=== PATIENT | male | born 1940 | race Caucasian/White ===

== ENCOUNTER → 2016-12-12 | Outpatient (CLI) | payer OTHER ==
[~2016-12-12] MED LIST: AMR2 PO; ASPEC325 PO; ATEN-171 PO; ATV5 PO; CLB200 PO; CLX20 PO; DIPH-437 PO; GLCSR500 PO; LRT5 PO; NIAC500T11 PO; PRAV20TA PO
[2016-12-12 13:24] LABS: ESTIMATED AVERAGE GLUCOSE 134 mg/dl; HA1C FLAG Normal (Normal)
[2016-12-12 13:40] LABS: CALCIUM 9.4 mg/dl (8.5-10.1)
[2016-12-12 13:42] LABS: ALT/SGPT 23 U/L (12-78); AST/SGOT 12 U/L (15-37); BLOOD UREA NITROGEN 30 mg/dl (7-18); BUN/CREATININE RATIO 25.1 (10-20); CARBON DIOXIDE 31 mmol/L (21-32); CHLORIDE 103 mmol/L (98-107); CHOLESTEROL 163 mg/dl (0-200); GLUCOSE 158 mg/dl (70-99); POTASSIUM 3.8 mmol/L (3.5-5.1); SODIUM 141 mmol/L (136-145); TRIGLYCERIDES 209 mg/dl (0-150); VERY LOW DENSITY LIPOPROT CALC 42 mg/dl
[2016-12-12 13:50] LABS: ALB/GLOB RATIO 1.1 (0.9-2); ALKALINE PHOSPHATASE 80 U/L (45-117); HDL CHOLESTEROL 41 mg/dl; LDL CHOLESTEROL CALCULATED 80 mg/dl
== END | disposition home or self-care (01) ==
LOC: C.LABMFLN 12:13
PROVIDERS: ATTEND Family Medicine
DX: E78.5 Hyperlipidemia, unspecified (principal); E11.40 Type 2 diabetes mellitus with diabetic neuropathy, unspecified

== ENCOUNTER → 2017-12-06 | Outpatient (CLI) | payer OTHER ==
[2017-12-06 13:35] LABS: ALBUMIN 3.3 gm/dl (3.4-5.0); ALT/SGPT 17 U/L (12-78); AST/SGOT 14 U/L (15-37); BLOOD UREA NITROGEN 25 mg/dl (7-18); CALCIUM 8.6 mg/dl (8.5-10.1); CARBON DIOXIDE 31 mmol/L (21-32); CHOLESTEROL 118 mg/dl (0-200); CREATININE 1.25 mg/dl (0.60-1.40); GLUCOSE 137 mg/dl (70-99); POTASSIUM 3.8 mmol/L (3.5-5.1); SODIUM 139 mmol/L (136-145)
[2017-12-06 13:40] LABS: ALKALINE PHOSPHATASE 83 U/L (45-117); LDL CHOLESTEROL CALCULATED 61 mg/dl; TOTAL PROTEIN 6.5 gm/dl (6.4-8.2)
[2017-12-06 13:50] LABS: HEMOGLOBIN A1C 6.1 % (4.5-5.6)
== END | disposition home or self-care (01) ==
LOC: C.LABMFLN 07:55
PROVIDERS: ATTEND Family Medicine
DX: C61 Malignant neoplasm of prostate (principal); I10 Essential (primary) hypertension; E78.5 Hyperlipidemia, unspecified; E11.40 Type 2 diabetes mellitus with diabetic neuropathy, unspecified

== ENCOUNTER 2021-05-29 16:48 | Inpatient (IN) ==
--- NOTE | 2021-05-29 17:28 | XRay Report ---
XR chest 1V portable HISTORY: weakness COMPARISON: Chest 01/18/2021. FINDINGS: The lungs are clear. Cardiac silhouette is normal in size. No pleural effusions. No pneumot horax. IMPRESSION: No acute process. ACT 112: Negative or not required by law. Electronically signed by: Emeka Dill M.D. 05/29/2021 5:27 PM
[2021-05-29 18:59] LABS: Basophils # (auto) 0.01 K/uL (0-0.2); Basophils % (auto) 0.1 %; Eosinophils # (auto) 0.01 K/uL (0-0.5); Eosinophils % (auto) 0.1 %; Hematocrit (blood only) 41.4 % (42-52); Hemoglobin 13.6 g/dL (14.0-18.0); Immature Granulocytes # (auto) 0.01 K/uL (0.00-0.02); Immature Granulocytes % (auto) 0.1 %; Lymphocytes # (auto) 0.68 K/uL (1.2-3.4); Lymphocytes % (auto) 8.8 %; Mean Corpuscular Hemoglobin 30.2 pg (25-34); Mean Corpuscular Hgb Conc 32.9 g/dL (32-36); Mean Platelet Volume 9.5 fL (7.4-10.4); Monocytes # (auto) 0.26 K/uL (0.11-0.59); Monocytes % (auto) 3.4 %; Neutrophils # (auto) 6.75 K/uL (1.4-6.5); Neutrophils % (auto) 87.5 %; Platelet Count 216 K/uL (130-400); RDW Coefficient of Variation 14.8 % (11.5-14.5); White Blood Count 7.72 K/uL (4.8-10.8)
[2021-05-29 19:25] LABS: Alanine Aminotransferase 39 U/L (12-78); Albumin Level 3.4 gm/dl (3.4-5.0); Alkaline Phosphatase 198 U/L (45-117); Aspartate Aminotransferase 12 U/L (15-37); BUN Creatinine Ratio 27.3 (10-20); Bilirubin,Total 1.3 mg/dl (0.2-1); Blood Urea Nitrogen 34 mg/dl (7-18); Calcium 8.9 mg/dl (8.5-10.1); Carbon Dioxide 28 mmol/L (21-32); Chloride 101 mmol/L (98-107); Est GFR (African American) 62.4 ml/min; Est GFR (Non-African American) 53.8 ml/min; Globulin 3.3 gm/dl (2.5-4.0); Glucose 500 mg/dl (70-99); Potassium 4.4 mmol/L (3.5-5.1); Sodium 135 mmol/L (136-145); Total Protein 6.7 gm/dl (6.4-8.2); Troponin I < 0.015 ng/ml (0-0.045)
--- NOTE | 2021-05-29 19:32 | CT Scan Report ---
HEAD CT NONCONTRAST CT DOSE: 1498.81 mGy.cm HISTORY: change in mental status TECHNIQUE: Multiaxial CT images of the head were performed without the use of intravenous contrast. A utomated exposure control was utilized for this study. A dose lowering technique was utilized adheri ng to the principles of ALARA. Comparison: Brain MRI 03/22/2021. Findings: Calcified atrophic right globe again noted. The paranasal sinuses and mastoid air cells are clear. The calvarium and skull base are intact. Old left MCA territory infarct is again noted. There is no hematoma or midline shift. No acute infarct identified. Old lacunar infarct within the left ce rebellar hemisphere. There is again noted a 2.5 cm left cerebellar mass. This is better appreciated o n these prior brain MRI. Impression: 1. No acute infarct or intracranial hemorrhage identified. 2. Old left MCA territory infarct, unchanged. 3. There is again noted a 2.5 cm left cerebellar mass. This is better appreciated on the prior brain MRI. ACT 112: Negative or not required by law. Electronically signed by: Emeka Dill M.D. 05/29/2021 7:30 PM
[2021-05-29 19:36] LABS: Beta-Hydroxybutyrate 4.27 mg/dl (0.2-2.81)
[2021-05-29] MEDS ORDERED: SODIUM CHLORIDE 0.9% 500 ML IV ONE (19:39)
[2021-05-29] MEDS ORDERED: NovoLIN-R INSULIN PER UNIT CHARGE IV STA (19:39)
--- NOTE | 2021-05-29 19:39 | Emergency Department Note ---
Impression & Plan Acute hyperglycemia, Cerebellar mass, Glioblastoma multiforme of cerebellum, Weakness ED Provider Note NAME: CAMDEN PARKINSON AGE: 81 SEX: M : 1940 ARRIVES VIA: Walk-In INFORMANT: Patient ED PROVIDER(S): Garret Macdonald DO CHIEF COMPLAINT: weakness and confusion HPI: Patient is a 81-year-old male who presents to the ER for confusion, weakness, and hyperglycemia. He has a history of a GBM and follows with [facility]. Over the past week they placed him on steroids, Decadron 4 in the morning and 2 in the evening. He has become much more confused intermittently agitated and weaker. He can no longer walk and get around. Denies any chest pain or shortness of breath. No belly pain, nausea, vomiting, or diarrhea. No dysuria, urgency, or frequency. No other exacerbating or remitting factors. Sugars have been running high the whole time. ROS: See above HPI for pertinent positives & negatives. A total of 10 systems reviewed and were otherwise negative. PAST MEDICAL HISTORY:See Below PAST SURGICAL HISTORY:See Below FAMILY HISTORY:See Below SOCIAL HISTORY:See Below HOME MEDICATIONS:See Below ALLERGIES:See Below VITALS:See Below PHYSICAL EXAMINATION: GENERAL: Sitting up in bed, alert, well appearing, well nourished, no distress, non-toxic EYE EXAM: normal conjunctiva. PERRL and EOM's grossly intact. OROPHARYNX: no exudate, no erythema, lips, buccal mucosa, and tongue normal and mucous membranes are moist NECK: supple, no nuchal rigidity, no adenopathy, non-tender LUNGS: Clear to auscultation. Normal chest wall mechanics HEART: no murmurs, S1 normal and S2 normal ABDOMEN: abdomen soft, non-tender, normo-active bowel sounds, no masses, no rebound or guarding. BACK: Back is symmetrical on inspection and there is no deformity, no midline tenderness, no CVA tenderness. SKIN: Small abrasion on the buttocks UPPER EXTREMITIES: upper extremities are grossly normal. LOWER EXTREMITIES: No pitting edema. NEURO EXAM: Oriented to person but not place or family, cranial nerves II-XII intact, normal speech, no weakness of arms, no weakness of legs. No drift. Finger to nose intact. Gross sensation intact. MEDICAL DECISION MAKING: Patient is an 81-year-old male who presents the ER for past medical history of GBM receiving chemo and radiation who has been having confusion and weakness over the past week. Recently started on Decadron over the past week. 4 mg in the morning and 2 mg at night. IV was established blood work was obtained. Labs show no significant leukocytosis and mild anemia. INR was unremarkable. BMP with a BSG 500. LFTs were unremarkable. T bili slightly up at 1.3. Beta hydroxybutyric at 4. UA was clean. Covid was negative. Patient was given IV fluids and insulin. Blood sugar trended down to 350. With the confusion elevated sugars which need stricter control discussed with the hospitalist for further evaluation. CT head did show no significant change in the 2.5 cm mass. Triage Nursing notes reviewed. Limited review of prior medical records performed Vital Signs: reviewed and remarkable for no significant abnormalities Differential diagnosis: Infection, dehydration, metabolic abnormality, hypo/hyperglycemia, electrolyte disturbance, anemia, hypoxia, cardiac sources, intracerebral event, toxicologic, neurologic, as well as other pathologies. ER treatment provided: See below Diagnostics interpreted by me: ECG: Sinus rhythm rate of 63 Left axis T wave inversion in the inferior leads as well as the lateral leads Right bundle branch block Septal Q waves New from old EKG T wave inversions Cardiac Monitoring: An order was placed for continuous cardiac monitoring. The monitor shows a rate of 90 with sinus rhythm. Laboratory studies: As stated above and show below. 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 Decreased appetite Depression Dilated aortic root Dyslipidemia Elevated troponin Falls Fatigue Generalized muscle weakness GERD (gastroesophageal reflux disease) Glaucoma Glioblastoma multiforme of cerebellum Head trauma Hearing loss of both ears due to cerumen impaction 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) Hypertension Hypokalemia Idiopathic polyneuropathy Neurologic gait dysfunction Never smoker Organic impotence Peripheral neuropathy Pulmonary nodule 1 cm or greater in diameter Retinal detachment Rhabdomyolysis Situational anxiety Type 2 diabetes mellitus Surgical History H/O wrist surgery Both wrists History of appendectomy History of cataract surgery Left eye History of colonoscopy History of hip replacement Left hip replacement History of inguinal hernia repair Bilateral History of prostate surgery History of tonsillectomy and adenoidectomy S/P cholecystectomy Family History Father Prostate cancer Mother Diabetes Heart disease H/O heart surgery Cancer Hypertension Brother No problems noted. Brother No problems noted. Sister No problems noted. Daughter No problems noted. 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 Feels Safe at Home: Yes Childhood Exposure to Second-Hand Smoke: No caffeine: No during the past year weight has: remained stable Seatbelt Use: always Sunscreen Use: No Assistive Devices: Glasses and Walker Allergies Allergies Allergy/AdvReac Type Severity Reaction Status Date / Time No Known Allergies Allergy Unknown Verified 05/29/21 19:45 Home Meds Home Medications Medication Instructions Recorded Confirmed niacin 500 mg tablet 500 mg PO DAILY tab 07/02/19 05/29/21 aspirin 81 mg tablet,delayed 81 mg PO DAILY 03/22/21 05/29/21 release buspirone 15 mg tablet 15 mg PO BID 03/22/21 05/29/21 melatonin 10 mg capsule 10 mg PO HS 03/22/21 05/29/21 acetaminophen 650 mg 650 mg PO Q8H PRN 04/16/21 05/29/21 tablet,extended release (Tylenol 8 Hour) folic acid 1 mg tablet 1 mg PO DAILY 04/16/21 05/29/21 dexamethasone 4 mg tablet 4 mg PO DAILY 05/17/21 05/29/21 atorvastatin 20 mg tablet 20 mg PO DAILY 05/29/21 05/29/21 Previous Rx's Medication Instructions Recorded escitalopram oxalate 20 mg tablet 20 mg PO DAILY #90 tab 07/13/20 metformin 500 mg tablet 500 mg PO BID #60 tab 04/15/21 lisinopril 20 mg tablet 20 mg PO DAILY #90 tab 04/29/21 lorazepam 0.5 mg tablet 0.5 mg PO BID PRN #60 tab 04/29/21 atenolol 50 mg tablet 50 mg PO QAM #30 tab 05/17/21 Results & Data (ED) Vital Signs Vital Signs - 24 hr 05/29/21 17:01 05/29/21 19:30 05/29/21 19:40 Temperature 36.6 C Temperature Source Oral Pulse Rate 66 Pulse Rate [Left] 72 Pulse Rhythm [Left] Regular Pulse Strength [Left] Normal Respiratory Rate 18 19 Respiratory Effort / Characteristics Non-Labored Respiratory Depth Normal Respiratory Pattern Regular Blood Pressure 118/62 Blood Pressure [Right Arm] 172/71 H Blood Pressure Mean 80 Blood Pressure Mean [Right Arm] 104 Blood Pressure Position [Right Arm] Sitting Pulse Oximetry 96 98 98 Oxygen Delivery Method Room Air Room Air Sepsis Recent Fever Within 48 Hours No Sepsis New/Unexplained Change in Mental Status Yes Sepsis Action Taken by Nursing No Action Required 05/29/21 20:37 05/29/21 21:00 05/29/21 22:16 Temperature Temperature Source Pulse Rate 63 63 Pulse Rate [Left] 65 Pulse Rhythm [Left] Regular Pulse Strength [Left] Normal Respiratory Rate 24 14 19 Respiratory Effort / Characteristics Non-Labored Respiratory Depth Normal Respiratory Pattern Regular Blood Pressure 164/92 H 158/79 H Blood Pressure [Right Arm] 146/65 H Blood Pressure Mean 116 105 Blood Pressure Mean [Right Arm] 92 Blood Pressure Position [Right Arm] Lying Pulse Oximetry 98 98 99 Oxygen Delivery Method Room Air Room Air Room Air Sepsis Recent Fever Within 48 Hours Sepsis New/Unexplained Change in Mental Status Sepsis Action Taken by Nursing Laboratory Data Result diagrams: 05/29/21 18:46 05/29/21 18:46 Lab Results 05/29/21 05/29/21 05/29/21 Range/Units 18:46 18:46 19:30 WBC 7.72 (4.8-10.8) K/uL RBC 4.50 L (4.7-6.1) M/uL Hgb 13.6 L (14.0-18.0) g/dL Hct 41.4 L (42-52) % MCV 92.0 (80-100) fL MCH 30.2 (25-34) pg MCHC 32.9 (32-36) g/dL RDW Std Deviation 50.0 H (36.4-46.3) fL RDW Coeff of [place]ien 14.8 H (11.5-14.5) % Plt Count 216 (130-400) K/uL MPV 9.5 (7.4-10.4) fL Immature Gran % (Auto) 0.1 % Neut % (Auto) 87.5 % Lymph % (Auto) 8.8 % [place] % (Auto) 3.4 % Eos % (Auto) 0.1 % Baso % (Auto) 0.1 % Neut # (Auto) 6.75 H (1.4-6.5) K/uL Lymph # (Auto) 0.68 L (1.2-3.4) K/uL [place] # (Auto) 0.26 (0.11-0.59) K/uL Eos # (Auto) 0.01 (0-0.5) K/uL Baso # (Auto) 0.01 (0-0.2) K/uL Immature Gran # (Auto) 0.01 (0.00-0.02) K/uL PT (9.0-12.0) Seconds INR (0.9-1.1) APTT (21.0-31.0) Seconds PTT Ratio Sodium 135 L (136-145) mmol/L Potassium 4.4 (3.5-5.1) mmol/L Chloride 101 (98-107) mmol/L Carbon Dioxide 28 (21-32) mmol/L Anion Gap 6.0 (3-11) BUN 34 H (7-18) mg/dl Creatinine 1.24 (0.6-1.4) mg/dl Est Cr Clr Drug Dosing Not Reportable Est GFR ( Amer) 62.4 ml/min Est GFR (Non-Af Amer) 53.8 ml/min BUN/Creatinine Ratio 27.3 H (10-20) Glucose 500 H* (70-99) mg/dl POC Glucose 465 H* (70-99) mg/dl Calcium 8.9 (8.5-10.1) mg/dl Total Bilirubin 1.3 H (0.2-1) mg/dl AST 12 L (15-37) U/L ALT 39 (12-78) U/L Alkaline Phosphatase 198 H (45-117) U/L Troponin I < 0.015 (0-0.045) ng/ml Total Protein 6.7 (6.4-8.2) gm/dl Albumin 3.4 (3.4-5.0) gm/dl Globulin 3.3 (2.5-4.0) gm/dl Albumin/Globulin Ratio 1.0 (0.9-2) Beta-Hydroxybutyric Acd 4.27 H (0.2-2.81) mg/dl Urine Color Urine Appearance (Clear) Urine pH (4.5-7.5) Ur Specific [place] (1.000-1.030) Urine Protein (Negative) Urine Glucose (UA) (Negative) Urine Ketones (Negative) Urine Blood (Negative) Urine Nitrite (Negative) Urine Bilirubin (Negative) Urine Urobilinogen (Negative) Ur Leukocyte Esterase (Negative) COVID-19 Eval Order SARS-CoV-2 (PCR) (Negative) 05/29/21 05/29/21 05/29/21 Range/Units 19:37 19:57 19:57 WBC (4.8-10.8) K/uL RBC (4.7-6.1) M/uL Hgb (14.0-18.0) g/dL Hct (42-52) % MCV (80-100) fL MCH (25-34) pg MCHC (32-36) g/dL RDW Std Deviation (36.4-46.3) fL RDW Coeff of Tien (11.5-14.5) % Plt Count (130-400) K/uL MPV (7.4-10.4) fL Immature Gran % (Auto) % Neut % (Auto) % Lymph % (Auto) % [place] % (Auto) % Eos % (Auto) % Baso % (Auto) % Neut # (Auto) (1.4-6.5) K/uL Lymph # (Auto) (1.2-3.4) K/uL [place] # (Auto) (0.11-0.59) K/uL Eos # (Auto) (0-0.5) K/uL Baso # (Auto) (0-0.2) K/uL Immature Gran # (Auto) (0.00-0.02) K/uL PT 9.9 (9.0-12.0) Seconds INR 1.0 (0.9-1.1) APTT 22.6 (21.0-31.0) Seconds PTT Ratio 0.9 Sodium (136-145) mmol/L Potassium (3.5-5.1) mmol/L Chloride (98-107) mmol/L Carbon Dioxide (21-32) mmol/L Anion Gap (3-11) BUN (7-18) mg/dl Creatinine (0.6-1.4) mg/dl Est Cr Clr Drug Dosing Est GFR ( Amer) ml/min Est GFR (Non-Af Amer) ml/min BUN/Creatinine Ratio (10-20) Glucose (70-99) mg/dl POC Glucose (70-99) mg/dl Calcium (8.5-10.1) mg/dl Total Bilirubin (0.2-1) mg/dl AST (15-37) U/L ALT (12-78) U/L Alkaline Phosphatase (45-117) U/L Troponin I (0-0.045) ng/ml Total Protein (6.4-8.2) gm/dl Albumin (3.4-5.0) gm/dl Globulin (2.5-4.0) gm/dl Albumin/Globulin Ratio (0.9-2) Beta-Hydroxybutyric Acd (0.2-2.81) mg/dl Urine Color Urine Appearance (Clear) Urine pH (4.5-7.5) Ur Specific [place] (1.000-1.030) Urine Protein (Negative) Urine Glucose (UA) (Negative) Urine Ketones (Negative) Urine Blood (Negative) Urine Nitrite (Negative) Urine Bilirubin (Negative) Urine Urobilinogen (Negative) Ur Leukocyte Esterase (Negative) COVID-19 Eval Order Covid19 at [facility] SARS-CoV-2 (PCR) NEGATIVE (Negative) 05/29/21 05/29/21 Range/Units 19:58 21:07 WBC (4.8-10.8) K/uL RBC (4.7-6.1) M/uL Hgb (14.0-18.0) g/dL Hct (42-52) % MCV (80-100) fL MCH (25-34) pg MCHC (32-36) g/dL RDW Std Deviation (36.4-46.3) fL RDW Coeff of Tien (11.5-14.5) % Plt Count (130-400) K/uL MPV (7.4-10.4) fL Immature Gran % (Auto) % Neut % (Auto) % Lymph % (Auto) % [place] % (Auto) % Eos % (Auto) % Baso % (Auto) % Neut # (Auto) (1.4-6.5) K/uL Lymph # (Auto) (1.2-3.4) K/uL [place] # (Auto) (0.11-0.59) K/uL Eos # (Auto) (0-0.5) K/uL Baso # (Auto) (0-0.2) K/uL Immature Gran # (Auto) (0.00-0.02) K/uL PT (9.0-12.0) Seconds INR (0.9-1.1) APTT (21.0-31.0) Seconds PTT Ratio Sodium (136-145) mmol/L Potassium (3.5-5.1) mmol/L Chloride (98-107) mmol/L Carbon Dioxide (21-32) mmol/L Anion Gap (3-11) BUN (7-18) mg/dl Creatinine (0.6-1.4) mg/dl Est Cr Clr Drug Dosing Est GFR ( Amer) ml/min Est GFR (Non-Af Amer) ml/min BUN/Creatinine Ratio (10-20) Glucose (70-99) mg/dl POC Glucose 335 H* (70-99) mg/dl Calcium (8.5-10.1) mg/dl Total Bilirubin (0.2-1) mg/dl AST (15-37) U/L ALT (12-78) U/L Alkaline Phosphatase (45-117) U/L Troponin I (0-0.045) ng/ml Total Protein (6.4-8.2) gm/dl Albumin (3.4-5.0) gm/dl Globulin (2.5-4.0) gm/dl Albumin/Globulin Ratio (0.9-2) Beta-Hydroxybutyric Acd (0.2-2.81) mg/dl Urine Color Yellow Urine Appearance Clear (Clear) Urine pH 5.0 (4.5-7.5) Ur Specific [place] 1.030 (1.000-1.030) Urine Protein Negative (Negative) Urine Glucose (UA) 3+ H (Negative) Urine Ketones Trace H (Negative) Urine Blood Negative (Negative) Urine Nitrite Negative (Negative) Urine Bilirubin Negative (Negative) Urine Urobilinogen Negative (Negative) Ur Leukocyte Esterase Negative (Negative) COVID-19 Eval Order SARS-CoV-2 (PCR) (Negative) Administered Medications Discontinued Medications Sodium Chloride (Nss) 500 mls @ 999 mls/hr IV .Q31M ONE Stop: 05/29/21 20:09 Last Infusion: 05/29/21 20:28 Dose: 0 mls/hr Documented by: [id number] Admin: 05/29/21 19:55 Dose: 999 mls/hr Documented by: [id number] Insulin Human Regular (Novolin-R Insulin Per Unit Charge) 8 units IV NOW STA Stop: 05/29/21 19:40 Last Admin: 05/29/21 19:54 Dose: 8 units Documented by: [id number] Cosigned by: [id number] Lorazepam (Lorazepam 1 Mg Tab) 1 mg SL NOW STA Stop: 05/29/21 23:30 Last Admin: 05/29/21 23:44 Dose: 1 mg Documented by: [id number] Imaging Data Radiologist's Impression: Chest X-Ray 05/29/21 17:05 XR chest 1V portable HISTORY: weakness COMPARISON: Chest 01/18/2021. FINDINGS: The lungs are clear. Cardiac silhouette is normal in size. No pleural effusions. No pneumothorax. IMPRESSION: No acute process. ACT 112: Negative or not required by law. Electronically signed by: Emeka Dill M.D. 05/29/2021 5:[address] 05/29/21 17:[address] DOSE: 1498.81 mGy.cm HISTORY: change in mental status TECHNIQUE: Multiaxial CT images of the head were performed without the use of intravenous contrast. Automated exposure control was utilized for this study. A dose lowering technique was utilized adhering to the principles of ALARA. Comparison: Brain MRI 03/22/2021. Findings: Calcified atrophic right globe again noted. The paranasal sinuses and mastoid air cells are clear. The calvarium and skull base are intact. Old left MCA territory infarct is again noted. There is no hematoma or midline shift. No acute infarct identified. Old lacunar infarct within the left cerebellar hemisphere. There is again noted a 2.5 cm left cerebellar mass. This is better appreciated on these prior brain MRI. Impression: 1. No acute infarct or intracranial hemorrhage identified. 2. Old left MCA territory infarct, unchanged. 3. There is again noted a 2.5 cm left cerebellar mass. This is better appreciated on the prior brain MRI. ACT 112: Negative or not required by law. Electronically signed by: Emeka Dill M.D. 05/29/2021 7:30 PM Discharge Plan Visit Data Chief Complaint: Weakness Stated Complaint: OPEN SORE ON BOTTOM/WEAKNESS,EXCESSIVE THIRST ED Provider: Garret Macdonald Discharge Problem: Acute hyperglycemia, Cerebellar mass, Glioblastoma multiforme of cerebellum, Weakness
[2021-05-29 20:02] LABS: Partial Thromboplastin Ratio 0.9; Partial Thromboplastin Time 22.6 Seconds (21.0-31.0); Prothrombin Time 9.9 Seconds (9.0-12.0)
[2021-05-29 20:06] LABS: Appearance Urine Clear (Clear); Bilirubin Urine Negative (Negative); Blood Urine Negative (Negative); Color Urine Yellow; Glucose Urine UA 3+ (Negative); Ketones Urine Trace (Negative); Leukocyte Esterase Urine Negative (Negative); Nitrite Urine Negative (Negative); Protein Urine Negative (Negative); Urobilinogen Urine Negative (Negative)
[2021-05-29] MEDS ORDERED: LORazepam 1 MG TAB SL STA (23:29)
--- NOTE | 2021-05-29 23:29 | History & Physical Report ---
Date of Service May 29, 2021 Assessment & Plan (1) Acute hyperglycemia: Plan: Glucose initially 500 on ED labs. 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 Continue otherwise as above (3) Glioblastoma multiforme of cerebellum: Plan: GBM/cerebellar mass- Was started on Decadron 4 mg p.o. in a.m. and 2 mg p.o. in p.m. by [facility] Presumptively this was for vasogenic edema CT of head showed no acute findings Order MRI brain with and without contrast to further assess Would continue Decadron at this time, and will treat the hyperglycemia, as the patient's symptoms are most likely related to hyperglycemia. (4) Cerebellar mass: Plan: See above (5) Weakness: Plan: See above (6) Benign essential hypertension: Plan: Continue atenolol, aspirin and lisinopril with hold parameters (7) Situational anxiety: Plan: Continue buspirone, Escitalopram, lorazepam as needed, and melatonin at bedtime History of Present Illness Chief Complaint: The patient presents to the emergency department with his , due to confusion, weakness and elevated blood sugar after having been started on Decadron for GBM at [facility]. Primary Care Provider: Gary Fraga MD The patient is an 81-year-old male with a past medical history including GBM, diabetes mellitus, diabetic autonomic neuropathy, hypertension, situational anxiety, cerebellar mass, insomnia, and hyperlipidemia. Patient presents with symptoms as noted above. He had been prescribed Decadron 4 mg in the a.m. and 2 mg in the p.m., but his had been withholding the evening dose due to elevated blood sugars at home. Allergies Allergy/AdvReac Type Severity Reaction Status Date / Time No Known Allergies Allergy Unknown Verified 05/29/21 19:45 Home Medications Medication Instructions Recorded Confirmed Type niacin 500 mg tablet 500 mg PO DAILY tab 07/02/19 05/29/21 History escitalopram oxalate 20 mg tablet 20 mg PO DAILY #90 tab 07/13/20 05/29/21 Rx aspirin 81 mg tablet,delayed 81 mg PO DAILY 03/22/21 05/29/21 History release buspirone 15 mg tablet 15 mg PO BID 03/22/21 05/29/21 History melatonin 10 mg capsule 10 mg PO HS 03/22/21 05/29/21 History metformin 500 mg tablet 500 mg PO BID #60 tab 04/15/21 05/29/21 Rx acetaminophen 650 mg 650 mg PO Q8H PRN 04/16/21 05/29/21 History tablet,extended release (Tylenol 8 Hour) folic acid 1 mg tablet 1 mg PO DAILY 04/16/21 05/29/21 History lisinopril 20 mg tablet 20 mg PO DAILY #90 tab 04/29/21 05/29/21 Rx lorazepam 0.5 mg tablet 0.5 mg PO BID PRN #60 tab 04/29/21 05/29/21 Rx atenolol 50 mg tablet 50 mg PO QAM #30 tab 05/17/21 05/29/21 Rx dexamethasone 4 mg tablet 4 mg PO DAILY 05/17/21 05/29/21 History atorvastatin 20 mg tablet 20 mg PO DAILY 05/29/21 05/29/21 History Past Med/Surg History Medical History (Updated 05/30/21 @ 00:49 by Garret Macdonald DO) Abnormality of gait and mobility Adenocarcinoma of prostate NIDIA (acute kidney injury) Ambulatory dysfunction Anemia Anxiety Aortic valve stenosis Benign essential hypertension Carotid bruit Cerebellar mass Colon adenoma 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 Decreased appetite Depression Dilated aortic root Dyslipidemia Elevated troponin Falls Fatigue Generalized muscle weakness GERD (gastroesophageal reflux disease) Glaucoma Glioblastoma multiforme of cerebellum Head trauma Hearing loss of both ears due to cerumen impaction 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) Hypertension Hypokalemia Idiopathic polyneuropathy Neurologic gait dysfunction Never smoker Organic impotence Peripheral neuropathy Pulmonary nodule 1 cm or greater in diameter Retinal detachment Rhabdomyolysis Situational anxiety Type 2 diabetes mellitus Surgical History H/O wrist surgery Both wrists History of appendectomy History of cataract surgery Left eye History of colonoscopy History of hip replacement Left hip replacement History of inguinal hernia repair Bilateral History of prostate surgery History of tonsillectomy and adenoidectomy S/P cholecystectomy Family History Father Prostate cancer Mother Diabetes Heart disease H/O heart surgery Cancer Hypertension Brother No problems noted. Brother No problems noted. Sister No problems noted. Daughter No problems noted. Daughter Diabetes Social History Smoking Status: Never smoker Second Hand Exposure: No; Hx Alcohol Use: No Hx Substance Use: No Preferred Language: Lao Communication Ability: Effective Hearing Ability: Hard of Hearing Career Development Coordinator Required: No Beliefs That Will Affect Care: None marital status: / Current Living Situation: Alone Current Living Situation Comment: Pt's daughter and her kids take turns caring for pt current occupational status: retired current occupation: [employer] Other Information That Helps Us Care for You: No Feels Safe at Home: Yes Safety Concerns: Feels Safe At This Time Childhood Exposure to Second-Hand Smoke: No caffeine: No during the past year weight has: remained stable Seatbelt Use: always Sunscreen Use: No Assistive Devices: Glasses and Wheelchair Review of Systems Review of Systems: The patient denies chest pain, palpitations, cough, lower extremity swelling, sore throat, fevers, chills, sweats, nausea, vomiting, diarrhea , constipation, abdominal pain, pelvic pain, blood in urine or stool, dysuria, urinary frequency or urgency, loss of consciousness, rash, abnormal bruising or bleeding, focal weakness, numbness or tingling in arms or legs, generalized arthralgias or myalgias, back or neck pain, or night sweats. The review of systems is otherwise negative other than for that already noted above, and at least 10 systems have been reviewed. Results & Data Results & Data ([facility]) Vital Signs (Past 12 Hours) Vital Signs Temp Pulse Pulse Resp BP BP Pulse Ox 05/29/21 22:16 65 19 146/65 H 99 05/29/21 21:00 63 14 158/79 H 98 05/29/21 20:37 63 24 164/92 H 98 05/29/21 19:40 98 05/29/21 19:30 72 19 172/71 H 98 05/29/21 17:01 97.9 F 66 18 118/62 96 Laboratory Results Laboratory Results WBC 7.72 K/uL (4.8-10.8) 05/29/21 18:46 RBC 4.50 M/uL (4.7-6.1) L 05/29/21 18:46 Hgb 13.6 g/dL (14.0-18.0) L 05/29/21 18:46 Hct 41.4 % (42-52) L 05/29/21 18:46 MCV 92.0 fL (80-100) 05/29/21 18:46 MCH 30.2 pg (25-34) 05/29/21 18:46 MCHC 32.9 g/dL (32-36) 05/29/21 18:46 RDW Std Deviation 50.0 fL (36.4-46.3) H 05/29/21 18:46 RDW Coeff of Tien 14.8 % (11.5-14.5) H 05/29/21 18:46 Plt Count 216 K/uL (130-400) 05/29/21 18:46 MPV 9.5 fL (7.4-10.4) 05/29/21 18:46 Immature Gran % (Auto) 0.1 % 05/29/21 18:46 Neut % (Auto) 87.5 % 05/29/21 18:46 Lymph % (Auto) 8.8 % 05/29/21 18:46 [place] % (Auto) 3.4 % 05/29/21 18:46 Eos % (Auto) 0.1 % 05/29/21 18:46 Baso % (Auto) 0.1 % 05/29/21 18:46 Neut # (Auto) 6.75 K/uL (1.4-6.5) H 05/29/21 18:46 Lymph # (Auto) 0.68 K/uL (1.2-3.4) L 05/29/21 18:46 Waldo # (Auto) 0.26 K/uL (0.11-0.59) 05/29/21 18:46 Eos # (Auto) 0.01 K/uL (0-0.5) 05/29/21 18:46 Baso # (Auto) 0.01 K/uL (0-0.2) 05/29/21 18:46 Immature Gran # (Auto) 0.01 K/uL (0.00-0.02) 05/29/21 18:46 PT 9.9 Seconds (9.0-12.0) 05/29/21 19:37 INR 1.0 (0.9-1.1) 05/29/21 19:37 APTT 22.6 Seconds (21.0-31.0) 05/29/21 19:37 PTT Ratio 0.9 05/29/21 19:37 Sodium 135 mmol/L (136-145) L 05/29/21 18:46 Potassium 4.4 mmol/L (3.5-5.1) 05/29/21 18:46 Chloride 101 mmol/L (98-107) 05/29/21 18:46 Carbon Dioxide 28 mmol/L (21-32) 05/29/21 18:46 Anion Gap 6.0 (3-11) 05/29/21 18:46 BUN 34 mg/dl (7-18) H 05/29/21 18:46 Creatinine 1.24 mg/dl (0.6-1.4) 05/29/21 18:46 Est Cr Clr Drug Dosing Not Reportable 05/29/21 18:46 Est GFR ( Amer) 62.4 ml/min 05/29/21 18:46 Est GFR (Non-Af Amer) 53.8 ml/min 05/29/21 18:46 BUN/Creatinine Ratio 27.3 (10-20) H 05/29/21 18:46 Glucose 500 mg/dl (70-99) H* 05/29/21 18:46 POC Glucose 335 mg/dl (70-99) H* 05/29/21 21:07 Calcium 8.9 mg/dl (8.5-10.1) 05/29/21 18:46 Total Bilirubin 1.3 mg/dl (0.2-1) H 05/29/21 18:46 AST 12 U/L (15-37) L 05/29/21 18:46 ALT 39 U/L (12-78) 05/29/21 18:46 Alkaline Phosphatase 198 U/L (45-117) H 05/29/21 18:46 Troponin I < 0.015 ng/ml (0-0.045) 05/29/21 18:46 Total Protein 6.7 gm/dl (6.4-8.2) 05/29/21 18:46 Albumin 3.4 gm/dl (3.4-5.0) 05/29/21 18:46 Globulin 3.3 gm/dl (2.5-4.0) 05/29/21 18:46 Albumin/Globulin Ratio 1.0 (0.9-2) 05/29/21 18:46 Beta-Hydroxybutyric Acd 4.27 mg/dl (0.2-2.81) H 05/29/21 18:46 Urine Color Yellow 05/29/21 19:58 Urine Appearance Clear (Clear) 05/29/21 19:58 Urine pH 5.0 (4.5-7.5) 05/29/21 19:58 Ur Specific [place] 1.030 (1.000-1.030) 05/29/21 19:58 Urine Protein Negative (Negative) 05/29/21 19:58 Urine Glucose (UA) 3+ (Negative) H 05/29/21 19:58 Urine Ketones Trace (Negative) H 05/29/21 19:58 Urine Blood Negative (Negative) 05/29/21 19:58 Urine Nitrite Negative (Negative) 05/29/21 19:58 Urine Bilirubin Negative (Negative) 05/29/21 19:58 Urine Urobilinogen Negative (Negative) 05/29/21 19:58 Ur Leukocyte Esterase Negative (Negative) 05/29/21 19:58 COVID-19 Eval Order Covid19 at [facility] 05/29/21 19:57 SARS-CoV-2 (PCR) NEGATIVE (Negative) 05/29/21 19:57 Impressions Chest X-Ray 05/29/21 17:05 XR chest 1V portable HISTORY: weakness COMPARISON: Chest 01/18/2021. FINDINGS: The lungs are clear. Cardiac silhouette is normal in size. No pleural effusions. No pneumothorax. IMPRESSION: No acute process. ACT 112: Negative or not required by law. Electronically signed by: Emeka Dill M.D. 05/29/2021 5:[address] 05/29/21 17:[address] DOSE: 1498.81 mGy.cm HISTORY: change in mental status TECHNIQUE: Multiaxial CT images of the head were performed without the use of intravenous contrast. Automated exposure control was utilized for this study. A dose lowering technique was utilized adhering to the principles of ALARA. Comparison: Brain MRI 03/22/2021. Findings: Calcified atrophic right globe again noted. The paranasal sinuses and mastoid air cells are clear. The calvarium and skull base are intact. Old left MCA territory infarct is again noted. There is no hematoma or midline shift. No acute infarct identified. Old lacunar infarct within the left cerebellar hemisphere. There is again noted a 2.5 cm left cerebellar mass. This is better appreciated on these prior brain MRI. Impression: 1. No acute infarct or intracranial hemorrhage identified. 2. Old left MCA territory infarct, unchanged. 3. There is again noted a 2.5 cm left cerebellar mass. This is better appreciated on the prior brain MRI. ACT 112: Negative or not required by law. Electronically signed by: Emeka Dill M.D. 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
[2021-05-30] MEDS ORDERED: ONDANSETRON INJ 2 MG/ML 2 ML VIAL IV PRN (00:50)
[2021-05-30] MEDS ORDERED: GLUCAGON FOR INJ 1 MG VIAL SQ PRN (00:50)
[2021-05-30] MEDS ORDERED: DEXTROSE 50% 50 ML SYRINGE IV PRN (00:50)
[2021-05-30] MEDS ORDERED: GLUCOSE 10 TABS/TUBE PO PRN (00:50)
[2021-05-30] MEDS ORDERED: GLUCOSE 40% GEL 15 GM TUBE PO PRN (00:50)
[2021-05-30] MEDS ORDERED: CARBOHYDRATES FOR HYPOGLYCEMIA PO PRN (00:50)
[2021-05-30] MEDS ORDERED: NSS + 20MEQ KCL 20 MEQ/1,000 ML BAG IV SCH (00:50)
[2021-05-30] MEDS ORDERED: ACETAMINOPHEN 325 MG TAB PO PRN (01:07)
[2021-05-30] MEDS: busPIRone 15 MG TAB PO SCH ×3 (02:38→20:01)
[2021-05-30 05:39] LABS: Basophils # (auto) 0.02 K/uL (0-0.2); Basophils % (auto) 0.3 %; Eosinophils # (auto) 0.05 K/uL (0-0.5); Eosinophils % (auto) 0.7 %; Hemoglobin 11.9 g/dL (14.0-18.0); Immature Granulocytes # (auto) 0.02 K/uL (0.00-0.02); Immature Granulocytes % (auto) 0.3 %; Lymphocytes # (auto) 1.63 K/uL (1.2-3.4); Mean Corpuscular Hemoglobin 30.5 pg (25-34); Mean Corpuscular Volume 89.7 fL (80-100); Mean Platelet Volume 8.9 fL (7.4-10.4); Monocytes # (auto) 0.57 K/uL (0.11-0.59); Neutrophils % (auto) 67.7 %; Platelet Count 176 K/uL (130-400); RDW Coefficient of Variation 14.6 % (11.5-14.5); RDW Standard Deviation 48.3 fL (36.4-46.3); White Blood Count 7.09 K/uL (4.8-10.8)
[2021-05-30 06:07] LABS: Albumin Level 2.6 gm/dl (3.4-5.0); Calcium 8.1 mg/dl (8.5-10.1); Creatinine Clr Calc Pharmacy 53.2 ml/min; Est GFR (African American) 83.9 ml/min; Est GFR (Non-African American) 72.4 ml/min; Magnesium 1.4 mg/dl (1.8-2.4); Potassium 3.8 mmol/L (3.5-5.1)
[2021-05-30 06:12] LABS: Bilirubin,Total 1.3 mg/dl (0.2-1); Globulin 2.6 gm/dl (2.5-4.0); Total Protein 5.2 gm/dl (6.4-8.2)
[2021-05-30] MEDS: LORazepam 0.5 MG TAB PO PRN ×2 (07:22→20:01)
[2021-05-30] MEDS ORDERED: PHARMACY GLYCEMIC MGMT CONSULT PRN (09:37)
[2021-05-30] MEDS: INSULIN ASPART 100 UNITS/ML 3 ML PEN SC SCH ×4 (10:01→20:01)
--- NOTE | 2021-05-30 10:02 | Electrocardiogram Report ---
Test Reason : Blood Pressure : / mmHG Vent. Rate : 063 BPM Atrial Rate : 063 BPM P-R Int : 146 ms QRS Dur : 128 ms QT Int : 462 ms P-R-T Axes : 077 -50 -74 degrees QTc Int : 472 ms Poor data quality, interpretation may be adversely affected Sinus rhythm with Premature supraventricular complexes Right bundle branch block Left anterior fascicular block Bifascicular block Moderate voltage criteria for LVH, may be normal variant Cannot rule out Septal infarct (cited on or before 29-MAY-2021) T wave abnormality, consider inferolateral ischemia Abnormal ECG When compared with ECG of 22-MAR-2021 19:25, Premature supraventricular complexes are now Present Inferolateral T wave inversions are worse Confirmed by Luis Carter ([id number]) on 05/30/2021 10:02:25 AM Referred By: REFERRED SELF Confirmed By:Luis Carter
[2021-05-30] MEDS ORDERED: LANTUS PER UNIT CHARGE SQ ONE (10:30)
[2021-05-30] MEDS: lisinopril 20 MG TAB PO SCH (10:44)
[2021-05-30] MEDS: ESCITALOPRAM OXALATE 20 MG TAB PO SCH (10:44)
[2021-05-30] MEDS: FOLIC ACID 1 MG TAB PO SCH (10:44)
[2021-05-30] MEDS: ATORVASTATIN 20 MG TAB PO SCH (10:45)
[2021-05-30] MEDS: ATENOLOL 50 MG TABLET PO SCH (10:45)
[2021-05-30] MEDS: dexAMETHasone 4 MG TAB PO SCH (10:45)
[2021-05-30] MEDS: ASPIRIN 81 MG ECTAB PO SCH (10:45)
[2021-05-30] MEDS ORDERED: GADOBUTROL 7.5ML VIAL IV ONE (11:58)
--- NOTE | 2021-05-30 12:38 | Magnetic Resonance Report ---
MRI OF THE BRAIN WITHOUT AND WITH IV CONTRAST CLINICAL HISTORY: GBM, on decadron by [facility], now with altered mental status. COMPARISON STUDY: MRI of the brain April 01, 2021. Head CT May 29, 2021. TECHNIQUE: Utilizing a 1.5 Jossy magnet and dedicated coil, multiplanar, multiecho imaging of the br ain was performed pre and postcontrast administration. IV administration of 6 mL of Gadavist contras t was uneventful. FINDINGS: There are no foci of restricted diffusion to suggest acute infarct. No acute intracranial h emorrhage, midline shift or mass affect is present. There is trace subdural hemorrhage overlying the right frontal lobe. This has significantly decreased when compared to this MRI of March 22, 2021. Walker tricular system is stable. Basal cisterns are patent. Old left MCA territory infarct is again noted. This is unchanged. A 2.7 x 1.7 cm enhancing lesion within the left cerebellar hemisphere is similar i n size to MRI of March 22, 2021. Central enhancement has decreased. Associated T2 hyperintensity is s lightly increased. No additional intracranial lesions are present. Calvarial signal is normal. Flow-v oids for the major intracranial vessels are present. Right globe deformity is incidentally noted. IMPRESSION: 1. No evidence for acute infarction. 2. Mild interval decrease in central enhancement of the 2.7 x 1.7 cm left cerebellar lesion. Overall size is similar to prior exam. Slight increase in adjacent T2 hyperintensity. 3. Near complete resolution of the right subdural hematoma. 4. Old left MCA territory infarct. ACT 112: Negative or not required by law. Electronically signed by: Michael Beltran M.D. 05/30/2021 12:37 PM
--- NOTE | 2021-05-30 14:23 | Pharmacy Report ---
Pharmacy Glycemic Short Note 2 - Date of Service May 30, 2021 - Glycemic Short BSG Results (Last 24 hours): 05/29/21 05/29/21 05/29/21 18:46 19:30 21:07 Glucose 500 H* POC Glucose 465 H* 335 H* 05/30/21 05/30/21 05/30/21 05:17 07:40 12:14 Glucose 245 H POC Glucose 206 H 240 H OUTPATIENT ANTIDIABETIC REGIMEN: * metformin 500 mg BID * dexamethasone 4 mg PO daily (was prescribed twice daily but HS dose held due to hyperglycemia) ASSESSMENT: * Mr Potter is an 81 y/o M with a PMH of T2DM who is experiencing hyperglycemia from steroids. * Currently on dexamethasone 4 mg daily. * Will start full-weight based stress of 2 Lantus for now. Patient's PO intake is questionable so less aggressive with Lantus. Will have scale for tomorrow morning based upon BSG. * Novolog weight-based stress of 3 as well due to steroid hyperglycemia. PLAN FOR INPATIENT GLYCEMIC CONTROL: * Hold outpatient oral diabetes medications * Basal insulin * Lantus 20 units SQ x 1 then 15-30 units SQ qAM based upon BSG * Bolus insulin * NovoLog per scale ACHS or Q6hrs while NPO * Goal Range: Low 110 mg/dL - High 140 mg/dL * Correction Factor: 25 mg/dL/unit * Nutritional / Prandial insulin per carb ratio of 1 unit per 7 grams CHO consumed PLAN FOR DISCHARGE: * TBD- HbA1C ordered
--- NOTE | 2021-05-30 18:13 | Hospitalist Progress Note ---
Date of Service May 30, 2021 Assessment & Plan (1) Altered mental status: Plan: Metabolic encephalopathy 2/2 acute hyperglycemia BSG 500 on arrival, down trended to less than 200 with treatment Received insulin IV 8 units with improvement No increased anion gap, creatinine stable, potassium normal. BHB positive ? Underlying baseline, patient remains somnolent. Continue to follow Glioblastoma as noted below Ct-H: No acute infarct or intracranial hemorrhage identified. Old left MCA territory infarct, unchanged. There is again noted a 2.5 cm left cerebellar mass. This is better appreciated on the prior brain MRI. - MRI-B: No evidence for acute infarction. Mild interval decrease in central enhancement of the 2.7 x 1.7 cm left cerebellar lesion. Overall size is similar to prior exam. Slight increase in adjacent T2 hyperintensity. Near complete res olution of the right subdural hematoma. Old left MCA territory infarct. No acute worsening of glioblastoma/intracranial pathology on imaging as seen above, suspect 2/due to hypoglycemic episode although patient not substantially improved on exam this afternoon despite improvement in BSG.? 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 Continue otherwise as above (4) Glioblastoma multiforme of cerebellum: Plan: Glioblastoma multiforme A, cerebellar mass Continue Decadron 4 mg a.m., [address]-H: No acute infarct or intracranial hemorrhage identified. Old left MCA territory infarct, unchanged. There is again noted a 2.5 cm left cerebellar mass. This is better appreciated on the prior brain MRI. - MRI-B: No evidence for acute infarction. Mild interval decrease in central enhancement of the 2.7 x 1.7 cm left cerebellar lesion. Overall size is similar to prior exam. Slight increase in adjacent T2 hyperintensity. Near complete resolution of the right subdural hematoma. Old left MCA territory infarct. Continue Decadron Clinical course with treatment of hyperglycemia as above (5) Cerebellar mass: Plan: See above (6) Weakness: Plan: See above (7) Benign essential hypertension: Plan: Continue atenolol, aspirin and lisinopril with hold parameters (8) Situational anxiety: Plan: Continue buspirone, Escitalopram, lorazepam as needed, and melatonin at bedtime Admission and Anticipated Discharge Date Admission Date: May 29, 2021 Subjective Patient somnolent. Opens eyes and awakens briefly to soft touch and name, does not answer questions and falls back asleep. Review of Systems Review of Systems: Limited by cognitive status Physical Exam Physical Exam: General: Oriented to name only, exam limited by somnolence. HEENT: Atraumatic, normocephalic. Pulm: CTAB A&P. -wheezes, -rales, -rhonchi. Symmetrical chest rise. No increase work of breathing. No respiratory distress. Cardiac: RRR, -mrg. Radial pulses intact and symmetrical. Abdominal: Nontender, nondistended, soft. BS present. Extremities: Warm, dry. Strength testing unable to be assessed. Withdraws and open eyes to soft touch of the hands bilaterally. 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
[2021-05-30 19:26] LABS: Lyme Ab IgG w/WB Rflx Negative (Negative); Lyme Ab IgM w/WB Rflx Negative (Negative)
[2021-05-30] MEDS: MELATONIN 3 MG TAB PO SCH (20:01)
[2021-05-31 05:10] LABS: Basophils # (auto) 0.01 K/uL (0-0.2); Basophils % (auto) 0.1 %; Eosinophils # (auto) 0.08 K/uL (0-0.5); Eosinophils % (auto) 1.1 %; Hematocrit (blood only) 33.2 % (42-52); Immature Granulocytes # (auto) 0.01 K/uL (0.00-0.02); Immature Granulocytes % (auto) 0.1 %; Lymphocytes # (auto) 1.62 K/uL (1.2-3.4); Lymphocytes % (auto) 21.9 %; Mean Corpuscular Hemoglobin 30.1 pg (25-34); Mean Corpuscular Hgb Conc 33.1 g/dL (32-36); Mean Corpuscular Volume 90.7 fL (80-100); Mean Platelet Volume 9.1 fL (7.4-10.4); Monocytes % (auto) 6.7 %; Neutrophils # (auto) 5.19 K/uL (1.4-6.5); Neutrophils % (auto) 70.1 %; Platelet Count 173 K/uL (130-400); RDW Coefficient of Variation 14.8 % (11.5-14.5); RDW Standard Deviation 49.1 fL (36.4-46.3); Red Blood Count 3.66 M/uL (4.7-6.1); White Blood Count 7.41 K/uL (4.8-10.8)
[2021-05-31 05:44] LABS: Albumin Level 2.2 gm/dl (3.4-5.0); BUN Creatinine Ratio 26.5 (10-20); Calcium 7.6 mg/dl (8.5-10.1); Creatinine Clr Calc Pharmacy 41.9 ml/min; Est GFR (African American) 60.6 ml/min; Est GFR (Non-African American) 52.3 ml/min; Potassium 3.8 mmol/L (3.5-5.1)
[2021-05-31 06:21] LABS: Albumin Globulin Ratio 0.9 (0.9-2); Bilirubin,Total 0.8 mg/dl (0.2-1); Globulin 2.5 gm/dl (2.5-4.0); Magnesium 1.5 mg/dl (1.8-2.4); Total Protein 4.7 gm/dl (6.4-8.2)
[2021-05-31 07:40] LABS: Estimated Average Glucose 209 mg/dl; Hemoglobin A1C 8.9 % (4.5-5.6)
[2021-05-31] MEDS: busPIRone 15 MG TAB PO SCH ×2 (09:13→22:24)
[2021-05-31] MEDS: ASPIRIN 81 MG ECTAB PO SCH (09:13)
[2021-05-31] MEDS: ATORVASTATIN 20 MG TAB PO SCH (09:13)
[2021-05-31] MEDS: ESCITALOPRAM OXALATE 20 MG TAB PO SCH (09:13)
[2021-05-31] MEDS: FOLIC ACID 1 MG TAB PO SCH (09:14)
[2021-05-31] MEDS: ATENOLOL 50 MG TABLET PO SCH (09:14)
[2021-05-31] MEDS: dexAMETHasone 4 MG TAB PO SCH (09:15)
[2021-05-31] MEDS: lisinopril 20 MG TAB PO SCH (09:15)
[2021-05-31] MEDS: INSULIN ASPART 100 UNITS/ML 3 ML PEN SC SCH ×4 (09:15→22:17)
[2021-05-31] MEDS: INSULIN GLARGINE SOLOSTAR 100 UNITS/ML 3 ML PEN SC SCH (10:53)
[2021-05-31] MEDS: MAGNESIUM SULFATE / D5W 1 GM/100 ML BAG IV SCH ×2 (10:55→12:50)
--- NOTE | 2021-05-31 13:14 | Pharmacy Report ---
Pharmacy Glycemic Short Note 2 - Date of Service May 31, 2021 - Glycemic Short BSG Results (Last 24 hours): 05/30/21 05/30/21 05/31/21 16:04 19:54 04:29 Glucose 95 POC Glucose 157 H 89 05/31/21 05/31/21 07:12 10:50 Glucose POC Glucose 86 156 H OUTPATIENT ANTIDIABETIC REGIMEN: * metformin 500 mg BID * dexamethasone 4 mg PO daily (was prescribed twice daily but HS dose held due to hyperglycemia) * A1c 8.9% 05/30/21 ASSESSMENT: 05/31 * Fasting 86 mg/dL this morning, lantus dose reduced to 15 units, will adjust scale for tomorrow * BSGs trended down after tightening carb ratio, will continue same for today * Continues of dexamethasone 4 mg PO 05/30 * Mr Potter is an 81 y/o M with a PMH of T2DM who is experiencing hyperglycemia from steroids. * Currently on dexamethasone 4 mg daily. * Will start full-weight based stress of 2 Lantus for now. Patient's PO intake is questionable so less aggressive with Lantus. Will have scale for tomorrow morning based upon BSG. * Novolog weight-based stress of 3 as well due to steroid hyperglycemia. PLAN FOR INPATIENT GLYCEMIC CONTROL: * Hold outpatient oral diabetes medications * Basal insulin * Lantus 20 units SQ x 1 then 15-30 units SQ qAM based upon BSG * Bolus insulin * NovoLog per scale ACHS or Q6hrs while NPO * Goal Range: Low 110 mg/dL - High 140 mg/dL * Correction Factor: 25 mg/dL/unit * Nutritional / Prandial insulin per carb ratio of 1 unit per 7 grams CHO consumed PLAN FOR DISCHARGE: * TBD-
[2021-05-31] MEDS: LORazepam 0.5 MG TAB PO PRN (16:00)
--- NOTE | 2021-05-31 21:23 | Hospitalist Progress Note ---
Date of Service May 31, 2021 Assessment & Plan (1) Altered mental status: Plan: Metabolic encephalopathy 2/2 acute hyperglycemia, but could also be secondary to side effect of steroids as well as side effect of recent radiation therapy Hyperglycemia has improved but remains with delirium No evidence of infection. MRI brain negative for acute stroke, but does show old left MCA stroke and almost completely resolved right subdural hematoma. Renal function electrolytes are acceptable, Lyme is negative, UA without infection, chest x-ray clear. -Continue supportive care Dose of steroids has been decreased to 4 mg once daily -Treating hypoglycemia as below -Was recently prescribed lorazepam at home in the last few weeks for as needed use by PCP and PCP also was considering adding mirtazapine -Given that he is agitated and having insomnia-add mirtazapine 7.5 mg p.o. at bedtime for anxiety which also help with sleep -Continue melatonin -Now on one-to-one sitter for safety -Maintain hydration and encourage regular p.o. intake -Watch for constipation (2) Acute hyperglycemia: Plan: BSG 500 on arrival, down trended to less than 200 with treatment Received insulin IV 8 units with improvement No increased anion gap, creatinine stable, potassium normal. 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 Continue otherwise as above (4) Glioblastoma multiforme of cerebellum: Plan: Glioblastoma multiforme A, cerebellar mass Recently completed radiation therapy with temozolomide Follows with neurosurgery at [place] and locally with [facility] radiation oncology Continue Decadron 4 mg a.m., but have discontinued the [address] dose [address]-H: No acute infarct or intracranial hemorrhage identified. Old left MCA territory infarct, unchanged. There is again noted a 2.5 cm left cerebellar mass. This is better appreciated on the prior brain MRI. - MRI-B: No evidence for acute infarction. Mild interval decrease in central enhancement of the 2.7 x 1.7 cm left cerebellar lesion. Overall size is similar to prior exam. Slight increase in adjacent T2 hyperintensity. Near complete resolution of the right subdural hematoma. Old left MCA territory infarct. (5) Cerebellar mass: Plan: See above (6) Weakness: Plan: Needs PT/OT consultations (7) Benign essential hypertension: Plan: Blood pressures are controlled Continue atenolol, aspirin and lisinopril with hold parameters (8) Situational anxiety: Plan: Continue buspirone, Escitalopram, and melatonin at bedtime I am concerned about lorazepam use in the setting of delirium and advanced age- we'll discontinue Add mirtazapine 7.5 mg p.o. at bedtime as above Plan: Continued stay Attempted to call daughter and left a message this evening for an update Admission and Anticipated Discharge Date Admission Date: May 29, 2021 Subjective Patient remains confused all day as per nursing. When I saw him, he was constantly pulling his Sanders catheter and calling out for his daughter's name. He was somewhat redirectable but very forgetful. He told me his birthdate when I asked him if he knew today's date. Denies chest pain or shortness of breath, denies headache. He is not sure if he ate today or not. Review of Systems Review of Systems: All systems reviewed & are unremarkable except as noted in HPI & below Physical Exam Constitutional: WD/WN, vitals as above Neck: trachea midline, no thyromegaly Respiratory: normal respiratory effort, lungs clear to auscultation Cardiovascular: RRR, no murmur, no edema Chest (Breasts): Chest: normal inspection of chest Gastrointestinal (Abdomen): normal bowel sounds, soft, nontender, no hepatosplenomegaly Musculoskeletal: Extremities: extremities normal to inspection; no cyanosis and no clubbing Skin: no rashes, warm and dry Neurologic: moves all extremities and awake; no focal motor deficits Psychiatric: Orientation: alert, oriented to person and cooperative; + not oriented to place and + not oriented to time Lymphatic: no lymphedema Results & Data Results & Data ([facility]) Vital Signs (Past 12 Hours) Vital Signs Temp Pulse Resp BP Pulse Ox 05/31/21 16:00 36.7 C 62 18 137/59 L 97 05/31/21 11:00 36.9 C 56 L 18 98/48 L 96 PG Care Time/CCT Total # of Minutes Spent Total Time Spent with Patient: Total time spent is greater than 50% in coordination of care (as documented) at patient's floor/unit and/or counseling patient: Coding Level of Care Code 83957 Subseq Hosp Care Lvl 3 Diagnoses Altered mental status R41.82 Acute hyperglycemia R73.9 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
[2021-05-31] MEDS: MELATONIN 3 MG TAB PO SCH (22:23)
[2021-05-31] MEDS: MIRTAZAPINE TAB 15 MG TAB PO SCH (22:24)
[2021-06-01 02:52] LABS: Basophils # (auto) 0.02 K/uL (0-0.2); Basophils % (auto) 0.2 %; Eosinophils # (auto) 0.05 K/uL (0-0.5); Eosinophils % (auto) 0.6 %; Hematocrit (blood only) 36.3 % (42-52); Hemoglobin 12.2 g/dL (14.0-18.0); Immature Granulocytes # (auto) 0.01 K/uL (0.00-0.02); Immature Granulocytes % (auto) 0.1 %; Lymphocytes % (auto) 20.5 %; Mean Corpuscular Hemoglobin 30.5 pg (25-34); Mean Corpuscular Hgb Conc 33.6 g/dL (32-36); Mean Corpuscular Volume 90.8 fL (80-100); Monocytes # (auto) 0.59 K/uL (0.11-0.59); Monocytes % (auto) 7.1 %; Neutrophils # (auto) 5.91 K/uL (1.4-6.5); Neutrophils % (auto) 71.5 %; Platelet Count 165 K/uL (130-400); RDW Coefficient of Variation 14.6 % (11.5-14.5); RDW Standard Deviation 48.8 fL (36.4-46.3); White Blood Count 8.28 K/uL (4.8-10.8)
[2021-06-01 03:21] LABS: Albumin Level 2.3 gm/dl (3.4-5.0); BUN Creatinine Ratio 28.4 (10-20); Calcium 8.1 mg/dl (8.5-10.1); Creatinine Clr Calc Pharmacy 45.1 ml/min; Est GFR (African American) 66.2 ml/min; Est GFR (Non-African American) 57.1 ml/min; Potassium 3.6 mmol/L (3.5-5.1)
[2021-06-01 03:23] LABS: Albumin Globulin Ratio 0.9 (0.9-2); Bilirubin,Total 0.8 mg/dl (0.2-1); Globulin 2.6 gm/dl (2.5-4.0); Total Protein 4.9 gm/dl (6.4-8.2)
[2021-06-01] MEDS: INSULIN ASPART 100 UNITS/ML 3 ML PEN SC SCH ×4 (08:19→20:43)
[2021-06-01] MEDS: ESCITALOPRAM OXALATE 20 MG TAB PO SCH (08:20)
[2021-06-01] MEDS: busPIRone 15 MG TAB PO SCH ×2 (08:20→20:41)
[2021-06-01] MEDS: ATENOLOL 50 MG TABLET PO SCH (08:20)
[2021-06-01] MEDS: dexAMETHasone 4 MG TAB PO SCH (08:21)
[2021-06-01] MEDS: lisinopril 20 MG TAB PO SCH (08:21)
[2021-06-01] MEDS: FOLIC ACID 1 MG TAB PO SCH (08:21)
[2021-06-01] MEDS: ATORVASTATIN 20 MG TAB PO SCH (08:21)
[2021-06-01] MEDS: ASPIRIN 81 MG ECTAB PO SCH (08:21)
[2021-06-01] MEDS: INSULIN GLARGINE SOLOSTAR 100 UNITS/ML 3 ML PEN SC SCH (08:26)
[2021-06-01] MEDS ORDERED: INSULIN GLARGINE SOLOSTAR 100 UNITS/ML 3 ML PEN SC STA (11:49)
--- NOTE | 2021-06-01 14:03 | Pharmacy Report ---
Pharmacy Glycemic Short Note 2 - Date of Service June 01, 2021 - Glycemic Short BSG Results (Last 24 hours): 05/31/21 05/31/21 06/01/21 15:52 21:39 02:35 Glucose 55 L POC Glucose 210 H 85 06/01/21 06/01/21 06/01/21 07:26 07:29 07:48 Glucose POC Glucose 61 L* 56 L* 92 06/01/21 11:21 Glucose POC Glucose 232 H OUTPATIENT ANTIDIABETIC REGIMEN: * metformin 500 mg BID * dexamethasone 4 mg PO daily (was prescribed twice daily but HS dose held due to hyperglycemia) * A1c 8.9% 05/30/21 ASSESSMENT: 06/01: * Patient hypoglycemic this morning @ 55 mg/dL and treated with 15g CHO. AM Lantus was held this morning to ensure upward trend and a reduced Lantus dose was ordered at lunchtime. Will monitor trend today before making any further adjustments. * Patient continues on PO dex and is ordered a diet 05/31 * Fasting 86 mg/dL this morning, lantus dose reduced to 15 units, will adjust scale for tomorrow * BSGs trended down after tightening carb ratio, will continue same for today * Continues of dexamethasone 4 mg PO 05/30 * Mr Potter is an 81 y/o M with a PMH of T2DM who is experiencing hyperglycemia from steroids. * Currently on dexamethasone 4 mg daily. * Will start full-weight based stress of 2 Lantus for now. Patient's PO intake is questionable so less aggressive with Lantus. Will have scale for tomorrow morning based upon BSG. * Novolog weight-based stress of 3 as well due to steroid hyperglycemia. PLAN FOR INPATIENT GLYCEMIC CONTROL: * Hold outpatient oral diabetes medications * Basal insulin * Lantus 10 units SQ @ lunchtime * Bolus insulin * NovoLog per scale ACHS or Q6hrs while NPO * Goal Range: Low 110 mg/dL - High 140 mg/dL * Correction Factor: 25 mg/dL/unit * Nutritional / Prandial insulin per carb ratio of 1 unit per 7 grams CHO consumed PLAN FOR DISCHARGE: * TBD-
--- NOTE | 2021-06-01 19:22 | Hospitalist Progress Note ---
Date of Service June 01, 2021 Assessment & Plan (1) Altered mental status: Plan: Metabolic encephalopathy most likely 2/2 combination of steroid psychosis as well as acute hyperglycemia, and side effect of recent brain radiation therapy Hyperglycemia has improved but remains with delirium No evidence of infection. MRI brain negative for acute stroke, but does show old left MCA stroke and almost completely resolved right subdural hematoma. Renal function electrolytes are acceptable, Lyme is negative, UA without infection, chest x-ray clear. -Continue supportive care -Discontinue steroids as per my discussion with the daughter as this is the most likely culprit -Was recently prescribed lorazepam at home in the last few weeks for as needed use by PCP and PCP also was considering adding mirtazapine-continue lorazepam as needed for anxiety as per my discussion with the daughter this has been helpful in the past. Added mirtazapine 7.5 mg p.o. at bedtime -Continue melatonin Continue one-to-one sitter for safety -Maintain hydration and encourage regular p.o. intake -Watch for constipation -Consult palliative medicine as per discussion with daughter (2) Acute hyperglycemia: Plan: BSG 500 on arrival, down trended to less than 200 with treatment Received insulin IV 8 units with improvement No increased anion gap, creatinine stable, potassium normal. 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 Continue otherwise as above (4) Glioblastoma multiforme of cerebellum: Plan: Glioblastoma multiforme A, cerebellar mass Recently completed radiation therapy with temozolomide Follows with neurosurgery at [facility] and locally with [facility] radiation oncology Discontinuing Decadron Ct-H: No acute infarct or intracranial hemorrhage identified. Old left MCA territory infarct, unchanged. There is again noted a 2.5 cm left cerebellar mass. This is better appreciated on the prior brain MRI. - MRI-B: No evidence for acute infarction. Mild interval decrease in central enhancement of the 2.7 x 1.7 cm left cerebellar lesion. Overall size is similar to prior exam. Slight increase in adjacent T2 hyperintensity. Near complete resolution of the right subdural hematoma. Old left MCA territory infarct. Daughter interested in pursuing palliative consultation to discuss goals of care She knows the prognosis is very poor (5) Cerebellar mass: Plan: See above (6) Weakness: Plan: Needs PT/OT consultations (7) Benign essential hypertension: Plan: Blood pressures are controlled Continue atenolol, aspirin and lisinopril with hold parameters (8) Situational anxiety: Plan: Continue buspirone, Escitalopram, and melatonin at bedtime Restart lorazepam as needed-daughter aware of risk of worsening delirium and falls Add mirtazapine 7.5 mg p.o. at bedtime as above Plan: Continued stay Disposition-continued stay but family is ready to bring him home hopefully tomorrow if can get hospital bed and after palliative consultation Admission and Anticipated Discharge Date Admission Date: May 29, 2021 Subjective Patient remains confused and mildly agitated at times, calling out for family members. He denies pain anywhere. He is eating and drinking. I had a long discussion with his daughter on the phone who would like to stop the steroids as she feels that this is what made him significantly more agitated in the last 2 weeks. He was placed on them as he was having a lot of weakness and difficulty ambulating and difficulty even feeding himself. She reports the only impro vement with the steroids was that he was then able to feed himself. However he is had great difficulty with anxiety, confusion, and insomnia since being on steroids. She would like to focus more on quality of time left and she knows that his prognosis is poor. She is interested in a palliative care consultation. The patient's daughter also reports that she has been giving him the lorazepam at least once a day and sometimes twice a day for the last 3 weeks. I did discuss with the pharmacist that I would be discontinuing the steroids so that the insulin regimen can be modified. Review of Systems Review of Systems: All systems reviewed & are unremarkable except as noted in HPI & below Physical Exam Constitutional: WD/WN, vitals as above Eyes: + anicteric sclerae Neck: trachea midline, no thyromegaly Respiratory: normal respiratory effort, lungs clear to auscultation Cardiovascular: RRR, no murmur, no edema Chest (Breasts): Chest: normal inspection of chest Gastrointestinal (Abdomen): normal bowel sounds, soft, nontender, no hepa tosplenomegaly Musculoskeletal: Extremities: extremities normal to inspection; no cyanosis and no clubbing Skin: no rashes, warm and dry Neurologic: moves all extremities and awake; no focal motor deficits Psychiatric: Orientation: alert, oriented to person and cooperative; + not oriented to place and + not oriented to time Lymphatic: no lymphedema Results & Data Results & Data ([facility]) Vital Signs (Past 12 Hours) Vital Signs Temp Pulse Pulse Resp BP Pulse Ox 06/01/21 16:00 37.0 C 65 20 156/82 H 94 06/01/21 12:00 36.8 C 56 L 16 126/75 95 06/01/21 08:07 67 06/01/21 08:00 36.5 C 51 L 14 126/75 95 Laboratory Results Labs reviewed PG Care Time/CCT Total # of Minutes Spent Total Time Spent with Patient: Total time spent is greater than 50% in coordination of care (as documented) at patient's floor/unit and/or counseling patient: Coding Level of Care Code 24493 Subseq Hosp Care Lvl 3 Diagnoses Altered mental status R41.82 Acute hyperglycemia R73.9 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
[2021-06-01] MEDS: MIRTAZAPINE TAB 15 MG TAB PO SCH (20:41)
[2021-06-01] MEDS: MELATONIN 3 MG TAB PO SCH (20:41)
[2021-06-02] MEDS: LORazepam 0.5 MG TAB PO PRN (00:05)
[2021-06-02] MEDS ORDERED: HALOPERIDOL LACTATE 5 MG/ML 1 ML VIAL IV STA (00:32)
[2021-06-02] MEDS ORDERED: INSULIN ASPART 100 UNITS/ML 3 ML PEN SC ONE (02:00)
[2021-06-02 08:15] LABS: Basophils # (auto) 0.02 K/uL (0-0.2); Basophils % (auto) 0.3 %; Eosinophils # (auto) 0.11 K/uL (0-0.5); Eosinophils % (auto) 1.5 %; Hematocrit (blood only) 38.9 % (42-52); Hemoglobin 12.9 g/dL (14.0-18.0); Immature Granulocytes # (auto) 0.02 K/uL (0.00-0.02); Immature Granulocytes % (auto) 0.3 %; Lymphocytes # (auto) 1.55 K/uL (1.2-3.4); Lymphocytes % (auto) 21.1 %; Mean Corpuscular Hemoglobin 30.3 pg (25-34); Mean Corpuscular Hgb Conc 33.2 g/dL (32-36); Mean Corpuscular Volume 91.3 fL (80-100); Mean Platelet Volume 8.7 fL (7.4-10.4); Monocytes # (auto) 0.62 K/uL (0.11-0.59); Monocytes % (auto) 8.5 %; Neutrophils # (auto) 5.01 K/uL (1.4-6.5); Neutrophils % (auto) 68.3 %; Platelet Count 160 K/uL (130-400); RDW Coefficient of Variation 14.6 % (11.5-14.5); RDW Standard Deviation 49.1 fL (36.4-46.3); Red Blood Count 4.26 M/uL (4.7-6.1); White Blood Count 7.33 K/uL (4.8-10.8)
[2021-06-02] MEDS: INSULIN ASPART 100 UNITS/ML 3 ML PEN SC SCH ×4 (08:33→21:43)
[2021-06-02] MEDS: ATORVASTATIN 20 MG TAB PO SCH (08:39)
[2021-06-02] MEDS: busPIRone 15 MG TAB PO SCH ×2 (08:39→21:30)
[2021-06-02] MEDS: ATENOLOL 50 MG TABLET PO SCH (08:39)
[2021-06-02] MEDS: ESCITALOPRAM OXALATE 20 MG TAB PO SCH (08:39)
[2021-06-02] MEDS: FOLIC ACID 1 MG TAB PO SCH (08:39)
[2021-06-02] MEDS: ASPIRIN 81 MG ECTAB PO SCH (08:39)
[2021-06-02] MEDS: lisinopril 20 MG TAB PO SCH (08:39)
[2021-06-02 08:55] LABS: Calcium 8.2 mg/dl (8.5-10.1); Est GFR (African American) 56.8 ml/min; Magnesium 1.9 mg/dl (1.8-2.4); Potassium 4.2 mmol/L (3.5-5.1)
[2021-06-02] MEDS ORDERED: INSULIN GLARGINE SOLOSTAR 100 UNITS/ML 3 ML PEN SC SCH (09:00)
--- NOTE | 2021-06-02 10:47 | Palliative Care Consultation ---
Date of Consultation June 02, 2021 Assessment & Plan (1) Altered mental status: Likely steroid related, exacerbated by hospitalization in ICU. Dexamethasone discontinued by Dr. Agrawal per family request. (2) Situational anxiety: Continue lorazepam. (3) Palliative care encounter: I spoke with Mr. Potter's daughter, Susanna, on the phone. She asked about role of palliative care for symptom management "until he's ready for hospice". We reviewed role of palliative care. We also discussed what her expectations were for her father's disease course. She recognizes that he is going to from his brain tumor and feels that he would not likely withstand further treatment. She asked about what his course would be like and we talked about progressive debility and weakness, being bedbound and eventual . She is adamant that she wants to care for him at home and would not want SNF placement. She has support from her son and daughter but otherwise is doing the care by herself. She asked about ways to get a break from care. Given his poor prognosis and her wish for him to remain at home, we discussed option of hospice support at home. She had been thinking that he would live for about two years. We discussed prognosis is likely months rather than years. She was tearful about this. We reviewed hospice benefit and services provided, including respite stay to help her get some relief. She would like to discuss with her family and consider this. (4) Glioblastoma multiforme of cerebellum: History of Present Illness Reason for Consultation: goals of care Requesting Physician: Dr. Agrawal Attending Physician: Brittany Agrawal MD History of Present Illness 81 yo gentleman with cerebellar GBM who has completed radiation and chemotherapy approximately three weeks ago. He was having some difficulty with coordination and feeding himself and had been started on dexamethasone as an outpatient. His daughter noticed that he seemed to have increased anxiety and agitation and self reduced the dose to 4mg daily. He subsequently had confusion and increased weakness and came to ER for evaluation. He was found to have blood sugar greater than 500. He does have a history of diabetes. He received IV insulin and blood sugar is controlled. Unfortunately, he continues to have confusion with agitated behavior. He reportedly was pulling out IV last night and received IV haldol. He does take lorazepam as an outpatient but po lorazepam was not effective for his symptoms last night. He is currently resting quietly but is agitated with arousal. Allergies Allergy/AdvReac Type Severity Reaction Status Date / Time No Known Allergies Allergy Unknown Verified 05/29/21 19:45 Home Medications Medication Instructions Recorded Confirmed Type niacin 500 mg tablet 500 mg PO DAILY tab 07/02/19 05/29/21 History escitalopram oxalate 20 mg tablet 20 mg PO DAILY #90 tab 07/13/20 05/29/21 Rx aspirin 81 mg tablet,delayed 81 mg PO DAILY 03/22/21 05/29/21 History release buspirone 15 mg tablet 15 mg PO BID 03/22/21 05/29/21 History melatonin 10 mg capsule 10 mg PO HS 03/22/21 05/29/21 History metformin 500 mg tablet 500 mg PO BID #60 tab 04/15/21 05/29/21 Rx acetaminophen 650 mg 650 mg PO Q8H PRN 04/16/21 05/29/21 History tablet,extended release (Tylenol 8 Hour) folic acid 1 mg tablet 1 mg PO DAILY 04/16/21 05/29/21 History lisinopril 20 mg tablet 20 mg PO DAILY #90 tab 04/29/21 05/29/21 Rx lorazepam 0.5 mg tablet 0.5 mg PO BID PRN #60 tab 04/29/21 05/29/21 Rx atenolol 50 mg tablet 50 mg PO QAM #30 tab 05/17/21 05/29/21 Rx dexamethasone 4 mg tablet 4 mg PO DAILY 05/17/21 05/29/21 History atorvastatin 20 mg tablet 20 mg PO DAILY 05/29/21 05/29/21 History Patient History Medical History Abnormality of gait and mobility Adenocarcinoma of prostate NIDIA (acute kidney injury) Ambulatory dysfunction Anemia Anxiety Aortic valve stenosis Benign essential hypertension Carotid bruit Cerebellar mass Colon adenoma 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 Decreased appetite Depression Dilated aortic root Dyslipidemia Elevated troponin Falls Fatigue Generalized muscle weakness GERD (gastroesophageal reflux disease) Glaucoma Glioblastoma multiforme of cerebellum Head trauma Hearing loss of both ears due to cerumen impaction 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) Hypertension Hypokalemia Idiopathic polyneuropathy Neurologic gait dysfunction Never smoker Organic impotence Peripheral neuropathy Pulmonary nodule 1 cm or greater in diameter Retinal detachment Rhabdomyolysis Situational anxiety Type 2 diabetes mellitus Surgical History H/O wrist surgery Both wrists History of appendectomy History of cataract surgery Left eye History of colonoscopy History of hip replacement Left hip replacement History of inguinal hernia repair Bilateral History of prostate surgery History of tonsillectomy and adenoidectomy S/P cholecystectomy Family History Father , 93yo Prostate cancer Mother , 93yo Diabetes Heart disease H/O heart surgery Cancer Unsure of type Hypertension Brother No problems noted. Brother No problems noted. Sister No problems noted. Daughter No problems noted. 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 How many Children do You have: 2 Feels Safe at Home: Yes Childhood Exposure to Second-Hand Smoke: No caffeine: No during the past year weight has: remained stable Seatbelt Use: always Sunscreen Use: No Assistive Devices: None Review of Systems Review of Systems: Unobtainable due to cognitive status and Unobtainable due to reduced consciousness [place] Symptom Assessment Scale Pain 0/3 by observation Dyspnea 0/3 by observation Physical Exam Constitutional: sleeping no acute distress Respiratory: normal respiratory effort; no labored breathing Cardiovascular: Rate/Rhythm: regular rhythm and + bradycardic Gastrointestinal (Abdomen): nondistended Musculoskeletal: Extremities: extremities normal to inspection Neurologic: unable to assess Results & Data ([facility]) Vital Signs (Past 12 Hours) Vital Signs Temp Pulse Pulse Resp BP Pulse Ox 06/02/21 10:13 60 06/02/21 07:40 98.2 F 59 L 21 102/63 97 06/02/21 07:08 98.2 F 60 18 102/63 96 06/02/21 04:39 98.8 F 56 L 13 100/54 L 95 06/01/21 23:43 98.6 F 58 L 14 142/74 H 99 PG Care Time/CCT Total # of Minutes Spent Total Time Spent: 62 Total Time Spent with Patient: Total time spent is greater than 50% in coordination of care (as documented) at patient's floor/unit and/or counseling patient: prognosis, symptom management, goals of care, hospice, family education and support Coding Level of Care Code 72887 Initial Inpt Care Lvl 2 Diagnoses Altered mental status R41.82 Palliative care encounter Z51.5 Situational anxiety F41.8 Glioblastoma multiforme of cerebellum C71.6
--- NOTE | 2021-06-02 15:53 | Hospitalist Progress Note ---
Date of Service June 02, 2021 Assessment & Plan (1) Altered mental status: Plan: Metabolic encephalopathy most likely 2/2 combination of steroid psychosis as well as acute hyperglycemia, and side effect of recent brain radiation therapy Hyperglycemia has improved but remains with delirium, required IV Haldol and restraints overnight No evidence of infection. MRI brain negative for acute stroke, but does show old left MCA stroke and almost completely resolved right subdural hematoma. Renal function electrolytes are acceptable, Lyme is negative, UA without infection, chest x-ray clear. -Continue supportive care, await for Haldol to wear off and can remove restraints One-to-one sitter as needed -Discontinue steroids as per my discussion with the daughter as this is the most likely culprit -Was recently prescribed lorazepam at home in the last few weeks for as needed use by PCP and PCP also was considering adding mirtazapine-continue lorazepam as needed for anxiety as per my discussion with the daughter this has been helpful in the past. Added mirtazapine 7.5 mg p.o. at bedtime-continue this and uptitrate as needed -Continue melatonin Continue one-to-one sitter for safety -Maintain hydration and encourage regular p.o. intake -Watch for constipation -Consult palliative medicine as per discussion with daughter (2) Acute hyperglycemia: Plan: BSG 500 on arrival, down trended to less than 200 with treatment Received insulin IV 8 units with improvement No increased anion gap, creatinine stable, potassium normal. 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 Continue otherwise as above (4) Glioblastoma multiforme of cerebellum: Plan: Glioblastoma multiforme A, cerebellar mass Recently completed radiation therapy with temozolomide Follows with neurosurgery at [place] and locally with [facility] radiation oncology Discontinuing Decadron Ct-H: No acute infarct or intracranial hemorrhage identified. Old left MCA territory infarct, unchanged. There is again noted a 2.5 cm left cerebellar mass. This is better appreciated on the prior brain MRI. - MRI-B: No evidence for acute infarction. Mild interval decrease in central enhancement of the 2.7 x 1.7 cm left cerebellar lesion. Overall size is similar to prior exam. Slight increase in adjacent T2 hyperintensity. Near complete resolution of the right subdural hematoma. Old left MCA territory infarct. Daughter interested in pursuing palliative consultation to discuss goals of care-not ready for hospice yet She knows the prognosis is very poor (5) Cerebellar mass: Plan: See above (6) Weakness: Plan: Needs PT/OT consultations (7) Benign essential hypertension: Plan: Blood pressures are controlled Continue atenolol, aspirin and lisinopril with hold parameters (8) Situational anxiety: Plan: Continue buspirone, Escitalopram, and melatonin at bedtime Restart lorazepam as needed-daughter aware of risk of worsening delirium and falls Add mirtazapine 7.5 mg p.o. at bedtime as above Plan: Continued stay Disposition-continued stay but family is ready to bring him home hopefully tomorrow if can get hospital bed and after palliative consultation Patient needs to have frequent repositioning that is not feasible in a regular bed related to weakness/cerebellum cancer/glioblastoma multiforme-therefore he needs a hospital bed at home Admission and Anticipated Discharge Date Admission Date: May 29, 2021 Subjective Patient had significant agitation overnight was given IV Haldol and placed in soft restraints. He remains very drowsy today and I could not wake him up with loud verbal stimulus. His daughter reports he did wake up a little bit earlier and ate a little bit for lunch. Family would really like to get him home soon as possible but not today given the excessive drowsiness. They are not ready for hospice yet and want to follow-up with his neuro oncologist time to repeat brain MRI in a few weeks as planned and then decide after that. They were all in agreement with adding mirtazapine and continue lorazepam as needed Review of Systems Review of Systems: Unobtainable due to cognitive status Physical Exam Constitutional: WD/WN, vitals as above no acute distress Respiratory: normal respiratory effort Results & Data Results & Data ([facility]) Vital Signs (Past 12 Hours) Vital Signs Temp Pulse Pulse Pulse Resp BP Pulse Ox 06/02/21 15:42 52 L 16 109/54 L 99 06/02/21 11:00 36.4 C L 53 L 14 131/57 L 97 06/02/21 10:13 60 06/02/21 07:40 36.8 C 59 L 21 102/63 97 06/02/21 07:08 36.8 C 60 18 102/63 96 06/02/21 04:39 37.1 C 56 L 13 100/54 L 95 PG Care Time/CCT Total # of Minutes Spent Total Time Spent with Patient: Total time spent is greater than 50% in coordination of care (as documented) at patient's floor/unit and/or counseling patient: Coding Level of Care Code 17409 Subseq Hosp Care Lvl 2 Diagnoses Altered mental status R41.82 Acute hyperglycemia R73.9 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
[2021-06-02] MEDS ORDERED: INSULIN HUMAN REGULAR PER UNIT 6 UNITS in SYRINGE 0 ML IV ONE (17:45)
[2021-06-02] MEDS: MELATONIN 3 MG TAB PO SCH (21:27)
[2021-06-02] MEDS: MIRTAZAPINE TAB 15 MG TAB PO SCH (21:29)
[2021-06-03] MEDS ORDERED: INSULIN ASPART 100 UNITS/ML 3 ML PEN SC ONE (02:00)
[2021-06-03] MEDS ORDERED: INSULIN HUMAN NPH SC SCH (08:00)
[2021-06-03 08:24] VITALS: BP 116/66; PULSE 56; TEMP 98.1; O2SAT 98
[2021-06-03] MEDS: ASPIRIN 81 MG ECTAB PO SCH (08:54)
[2021-06-03] MEDS: FOLIC ACID 1 MG TAB PO SCH (08:54)
[2021-06-03] MEDS: ATENOLOL 50 MG TABLET PO SCH (08:54)
[2021-06-03] MEDS: lisinopril 20 MG TAB PO SCH (08:54)
[2021-06-03] MEDS: ESCITALOPRAM OXALATE 20 MG TAB PO SCH (08:54)
[2021-06-03] MEDS: ATORVASTATIN 20 MG TAB PO SCH (08:54)
[2021-06-03] MEDS: busPIRone 15 MG TAB PO SCH (08:54)
[2021-06-03] MEDS: INSULIN ASPART 100 UNITS/ML 3 ML PEN SC SCH ×2 (08:54→13:28)
[2021-06-03] MEDS: LORazepam 0.5 MG TAB PO PRN (10:05)
--- NOTE | 2021-06-03 13:21 | Discharge Summary ---
Date of Service June 03, 2021 Admission HPI Per Admitting Provider The patient is an 81-year-old male with a past medical history including GBM, diabetes mellitus, diabetic autonomic neuropathy, hypertension, situational anxiety, cerebellar mass, insomnia, and hyperlipidemia. Patient presents with symptoms as noted above. He had been prescribed Decadron 4 mg in the a.m. and 2 mg in the p.m., but his had been withholding the evening dose due to elevated blood sugars at home. Principal Diagnosis Steroid psychosis, acute metabolic encephalopathy, hyperglycemia Discharge Exam Constitutional WD/WN, vitals as above no acute distress Eyes + anicteric sclerae Neck trachea midline, no thyromegaly Respiratory normal respiratory effort, lungs clear to auscultation normal respiratory effort Cardiovascular RRR, no murmur, no edema Chest (Breasts) Chest: normal inspection of chest Gastrointestinal (Abdomen) normal bowel sounds, soft, nontender, no hepatosplenomegaly Musculoskeletal Extremities: extremities normal to inspection; no cyanosis and no clubbing Skin no rashes, warm and dry Neurologic moves all extremities and awake; no focal motor deficits Psychiatric Orientation: alert, oriented to person and cooperative; + not oriented to place and + not oriented to time Lymphatic no lymphedema Discharge Data Allergies Allergy/AdvReac Type Severity Reaction Status Date / Time No Known Allergies Allergy Unknown Verified 05/29/21 19:45 Consultations 05/29/21 21:19 ED Decision to Admit Stat 06/01/21 19:45 Consult Palliative Care Routine Ordered Studies 05/29/21 17:05 CT head/brain wo con Stat 05/30/21 02:47 MR brain wo/w con Routine Hospital Course (1) Altered mental status: Metabolic encephalopathy most likely 2/2 combination of steroid psychosis as well as acute hyperglycemia, and side effect of recent brain radiation therapy Hyperglycemia has improved but remains with delirium, required IV Haldol and restraints overnight on the night of 06/01, but now improved on 06/03-the day of discharge No evidence of infection. MRI brain negative for acute stroke, but does show old left MCA stroke and almost completely resolved right subdural hematoma. Renal function electrolytes are acceptable, Lyme is negative, UA without infection, chest x-ray clear. -Continue supportive care One-to-one sitter since been removed -Discontinued steroids as per my discussion with the daughter as this is the most likely culprit -Was recently prescribed lorazepam at home in the last few weeks for as needed use by PCP and PCP also was considering adding mirtazapine-continue lorazepam as needed for anxiety as per my discussion with the daughter this has been helpful in the past. Added mirtazapine 7.5 mg p.o. at bedtime-continue this and uptitrate as needed through PCP after discharge -Continue melatonin -Maintain hydration and encourage regular p.o. intake -Watch for constipation -Consult palliative medicine as per discussion with daughter-not ready to transition to hospice yet but may be an option in the future (2) Acute hyperglycemia: BSG 500 on arrival, down trended to less than 200 with treatment Received insulin IV 8 units with improvement No increased anion gap, creatinine stable, potassium normal. BHB positive Improved with insulin IV followed by glargine/aspart Now discontinuing steroids-insulin dosing was reduced He does not need insulin on discharge Restart home Metformin Last dose of dexamethasone was 06/01 and therefore his blood sugars will most likely be coming down over the next 24 hours (3) 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: Typically fairly well controlled Restart home Metformin No need for insulin as above (4) Glioblastoma multiforme of cerebellum: Glioblastoma multiforme A, cerebellar mass Recently completed radiation therapy with temozolomide Follows with neurosurgery at [place] and locally with [facility] radiation oncology Discontinuing Decadron Ct-H: No acute infarct or intracranial hemorrhage identified. Old left MCA territory infarct, unchanged. There is again noted a 2.5 cm left cerebellar mass. This is better appreciated on the prior brain MRI. - MRI-B: No evidence for acute infarction. Mild interval decrease in central enhancement of the 2.7 x 1.7 cm left cerebellar lesion. Overall size is similar to prior exam. Slight increase in adjacent T2 hyperintensity. Near complete resolution of the right subdural hematoma. Old left MCA territory infarct. Daughter interested in pursuing palliative consultation to discuss goals of care-not ready for hospice yet She knows the prognosis is very poor (5) Cerebellar mass: See above (6) Weakness: Needs PT/OT consultations (7) Benign essential hypertension: Blood pressures are controlled Continue atenolol, aspirin and lisinopril (8) Situational anxiety: Continue buspirone, Escitalopram, and melatonin at bedtime Restart lorazepam as needed-daughter aware of risk of worsening delirium and falls Add mirtazapine 7.5 mg p.o. at bedtime as above Disposition-stable for discharge home with home health Patient needs to have frequent repositioning that is not feasible in a regular bed related to weakness/cerebellum cancer/glioblastoma multiforme-therefore he needs a hospital bed at home I certify that this patient is under my care and that I, or a physicians licensed nursing assistant working with me, had a face to-face encounter that meets the home health [id number] encounter requirements with this patient. The encounter with the patient was in whole, or in part, for the following medical condition, which is the primary reason for home health care (list medical condition): Glioblastoma I certify that, based on my findings, the following services are medically necessary home health services: My clinical findings support the need for the above services because: OT Assess ADL Status and Restore Function w ADLs Prevention of Pressure Areas PT Eval for Safety and Mobility PT Eval for Safety, Gait Training, Assistive Devices PT Gait and Balance Training, Strengthening and Safety Skilled Nsg Assessment Further, I certify that my clinical findings support that this patient is homebound (i.e. absences from home require considerable and taxing effort and are for medical reasons or caodaism services or infrequently or of short duration when for other reasons) because: Assistance of 1 Person for Ambulation/Activities Supportive Aid - Walker Supportive Aid - Wheelchair Certification for Home Health Services: Based on the above findings, I certify that this patient is confined to the home and needs intermittent care home care, physical therapy and/or speech th erapy or continues to need occupational therapy. The patient is under my care, and I have initiated the establishment of the plan of care. This patient will be followed by a physician who will periodically review the plan of care. Total Time Total Time Spent Total Time Spent (In Minutes): 35 min Discharge Plan Discharge Items Patient Disposition: Home - Home Health Services Reason For Visit: ALTERED MENTAL STATUS, HYPERGLYCEMIA Discharge Diagnosis: Acute metabolic encephalopathy secondary to steroids, hyperglycemia Condition on Discharge: Fair Activity: As commented below Lifting: Gradually increase as tolerated Bathing: No limitations Exercise/Sports: Gradually increase as tolerated Non-emergency contact: Primary Care Provider and Oncologist Call non-emergency contact if: you have any medication questions and your symptoms worsen Follow-up/Referrals: Gary Fraga MD [Primary Care Provider] - (Follow-up within 1 to 2 weeks) Diet: Carb Consistent or DM2 Addtl Attending Provider Instructions: You were admitted for elevated blood sugars and confusion which is likely secondary to the dexamethasone (steroid) use. This medication has been stopped. Your blood sugars might still be slightly elevated until the dexamethasone is completely out of your system, but by tomorrow, your blood sugars should be more closer to the normal range. You do not need to take insulin at home. You were started on mirtazapine to help with anxiety, sleep, and appetite at bedtime. This medication can be increased in dosing as needed by your primary care physician. Please keep your follow-up appointment with your oncologist in the near future. Please follow-up with your PCP as well Pending Studies at Discharge: No Stand-Alone Forms: My [facility] Medications and DC Order Prescriptions: New mirtazapine 15 mg Tablet 7.5 mg PO HS Qty: 15 RF: 0 Continued folic acid 1 mg tablet 1 mg PO DAILY RF: 0 acetaminophen [Tylenol 8 Hour] 650 mg tablet extended release 650 mg PO Q8H PRN (Reason: Pain) RF: 0 metformin 500 mg tablet 500 mg PO BID Qty: 60 RF: 5 atenolol 50 mg tablet 50 mg PO QAM Qty: 30 RF: 5 escitalopram oxalate 20 mg tablet 20 mg PO DAILY Qty: 90 RF: 3 lorazepam 0.5 mg tablet 0.5 mg PO BID PRN (Reason: anxiety) Qty: 60 RF: 2 lisinopril 20 mg tablet 20 mg PO DAILY Qty: 90 RF: 3 niacin 500 mg tablet 500 mg PO DAILY RF: 0 aspirin 81 mg Tablet,Delayed Release (Dr/Ec) 81 mg PO DAILY RF: 0 buspirone 15 mg tablet 15 mg PO BID RF: 0 melatonin 10 mg capsule 10 mg PO HS RF: 0 atorvastatin 20 mg tablet 20 mg PO DAILY RF: 0 Discontinued dexamethasone 4 mg tablet 4 mg PO DAILY RF: 0 Discharge Orders: Discharge Order (Routine); Ordered 06/03/21 Ordered By: Brittany Harrison/Other Patient Handouts: A1C, High Blood Sugar (Hyperglycemia), Managing Type 2 Diabetes Admission Data Admit Date/Time: 05/29/21 23:28 Attending Provider: Brittany Agrawal Admit Provider: Chon Esqueda Primary Care Provider: Gary Fraga Other Providers: Chon Esqueda ; Radha Castro Coding Level of Care Code D/C DAY MANAGEMENT >30 MINS Diagnoses Altered mental status R41.82 Acute hyperglycemia R73.9 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
== END 2021-06-03 15:39 | disposition home health service (06) | DRG 637 ==
LOC: ED 16:48 → EDINP 23:28 → SUATTDRO 23:28 → 1E 05-30 00:44 → 3E 06-02 13:32